=== PATIENT | female | born 1985 | race Two or more races ===

== ENCOUNTER 2024-05-17 13:04 | Outpatient (RCR) | payer MEDICAID, SELFPAY ==
--- NOTE | 2024-05-17 15:14 | CTCCONSULT_ITS ---
[facility] [address] [place], [place] [address] Consultation Note Date: 05/17/2024 MR#: [id number] Name: SYED FERNANDEZ : 1985 Dx: C73 Malignant neoplasm of thyroid gland Attending physician. ALLISON Ojeda Referring physician. Kory Yu MD Reason for consultation. 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 History of Present Illness: Patient is a 37-year-old lady, followed for neck fax felt in the thyroid area with ultrasound showing heterogeneous right thyroid lobe with at least 2 solid isoechoic and hyperechoic nodules largest being 2.8 cm in the upper pole. 09/17/2023 patient had right thyroidectomy performed by Dr. Downing. 2 x 2 x 0.9 cm papillary carcinoma margins uninvolved angioinvasion present lymphatic invasion present extrathyroidal extension not identified no lymph nodes submitted. pT1b Nx. Left thyroid lobectomy 10/11/2023 revealing 2 small foci of papillary carcinoma each less than 1 mm. The stage of pT1b pNX status remained the same. Patient reportedly is on 100 mcg of levothyroxine. Patient referred for radioactive iodine therapy. Past Medical History: Recent discovery of thyroid cancer denies other medical conditions Meds. Levothyroxine 100 mcg a day. Family history. Denies cancer history in family Social History: 2 pregnancies 1 age of first 22 Review of Systems: Has experienced anxiety cold heat intolerance Physical Exam: General: Well-appearing lady no acute distress HEENT: Well-healed scar low neck lymph nodes not felt chest clear to auscultation CV: heart regular rate and rhythm clear to auscultation ABD: Soft no organomegaly or tenderness EXT: No cyanosis clubbing or edema. Assessment: 1. Patient with pT1bNx right thyroid papillary carcinoma status post right thyroid lobectomy 09/17/2023, and left thyroidectomy 10/11/2023 revealing 2 small foci less than 1 mm of papillary carcinoma. 2. The moderate size (2 cm) and angioinvasion puts patient at intermediate risk of recurrence following surgery. 3. There is a trend toward reducing the radioiodine dosage and in some cases eliminated altogether for favorable low risk types. I believe that a moderate dose of 30 mCi should be adequate to control her cancer postop, along with thyroid hormone replacement and TSH control. Discussed with patient and mother present regarding radiation safety instructions which will be reviewed following her being prepped for the procedure. 4. Told patient to take half strength or 50 mcg of Synthroid for the next 4 weeks followed by being off completely for the following 2 weeks. TSH and test will be checked prior to administration of the procedure. 5. Thank you very much for allowing me to evaluate and manage this patient. Cc: Kory Yu MD, CVCC MD Jenifer Mauricio [employer] DEVELOPER Electronically signed by: Alex Romero MD, DABR 05/17/2024 3:11 PM
== END 2024-06-09 23:59 | disposition home or self-care (01) ==
LOC: SCTC 13:04
PROVIDERS: PCP Nurse Practitioner Family; Referring Provider Internal Medicine Hematology & Oncology; Visit Provider Radiology Therapeutic Radiology
DX: C73 Malignant neoplasm of thyroid gland (principal); E89.0 Postprocedural hypothyroidism; Z79.890 Hormone replacement therapy
CPT/HCPCS: 99213; G0463

== ENCOUNTER 2024-06-28 14:08 | Outpatient (RCR) | payer MEDICAID, SELFPAY ==
--- NOTE | 2024-06-28 15:04 | CTCFLWUP_ITS ---
[facility] [address] [place], [place] [address] FOLLOW-UP NOTE Date: 06/28/2024 MR#: [id number] Name: SYED FERNANDEZ : 1985 Dx: C73 Malignant neoplasm of thyroid gland Identification. Patient with pT1bNX right thyroid papillary carcinoma status post right thyroid lobectomy 09/17/2023 and left thyroidectomy 10/11/2023 revealing 2 small foci less than 1 mm of papillary carcinoma. The right thyroid carcinoma measured 2 x 2 x 0.9 cm with angioinvasion and lymphatic invasion present. Patient is felt to be intermediate risk and 30 mCi of radioactive iodine was discussed with the patient. Was told to take half strength Synthroid followed by no thyroid supplements for the past 2 weeks. Patient did appear to have followed the instructions but did not yet get labs drawn. Labs for TSH and practice was given to patient and we will be calling her later. Radiation safety instructions were given for when we will be doing this procedure.. Electronically signed by: Alex Romero M.D. 06/28/2024 3:01 PM
== END 2024-07-10 23:59 | disposition home or self-care (01) ==
LOC: SCTC 14:08
PROVIDERS: PCP Nurse Practitioner Family; Referring Provider Nurse Practitioner Family; Visit Provider Radiology Therapeutic Radiology
DX: C73 Malignant neoplasm of thyroid gland (principal); E89.0 Postprocedural hypothyroidism
CPT/HCPCS: 99213; G0463

== ENCOUNTER 2024-08-24 13:21 | Outpatient (RCR) | payer MEDICAID, SELFPAY ==
--- NOTE | 2024-08-24 14:34 | CTCFLWUP_ITS ---
[facility] [address] [place], [place] [address] FOLLOW-UP NOTE Date: 08/24/2024 MR#: [id number] Name: SYED FERNANDEZ : 1985 Dx: C73 Malignant neoplasm of thyroid gland Patient with pT1b NX right thyroid papillary carcinoma status post right thyroidectomy 09/17/2023 and left thyroidectomy 10/11/2023 revealing 2 small foci less than 1 mm papillary carcinoma. Right thyroid carcinoma measured 2 x 2 x 0.9 cm with angioinvasion and lymphatic invasion present. Patient received 31 mCi of I-131 and week later total body iodine scan showed no findings of met disease. Patient followed radiation therapy precautions. Patient is now seeing Dr. Yu who adjusting her thyroid medications as well as doing lab tests and occasional imaging studies to be scheduled. Told patient that as she is stage I with no sign of distant mets and with adequate treatment and follow-up with Dr. Yu she could be seeing us only on a as needed basis. Electronically signed by: Alex Romero M.D. 08/24/2024 2:32 PM
== END 2024-09-09 23:59 | disposition home or self-care (01) ==
LOC: SCTC 13:21
PROVIDERS: PCP Nurse Practitioner Family; Referring Provider Nurse Practitioner Family; Visit Provider Radiology Therapeutic Radiology
DX: C73 Malignant neoplasm of thyroid gland (principal); E89.0 Postprocedural hypothyroidism
CPT/HCPCS: 99213; G0463

== ENCOUNTER 2025-01-18 09:15 | Outpatient (RCR) | payer MEDICAID, SELFPAY ==
[2025-01-15 10:51] LABS: HCG Qualitative,Urine Negative
--- NOTE | 2025-01-17 09:00 | XR_ITS ---
EXAMINATION: Nuclear medicine thyroid scan Date and time: January,, 1555 hours INDICATIONS: Diagnosis malignant neoplasm thyroid, thyroidectomy 2023, lack of energy COMPARISON: July 18, 2024 TECHNIQUE AND FINDINGS: Oral administration 279 uCi I-123 06-hour and 24-hour uptake No thyroid activity IMPRESSION: No thyroid activity
== END 2025-01-23 23:59 | disposition home or self-care (01) ==
LOC: SNUC 09:15
PROVIDERS: PCP Nurse Practitioner Family; Referring Provider Internal Medicine Hematology & Oncology; Visit Provider Internal Medicine Hematology & Oncology
DX: C73 Malignant neoplasm of thyroid gland (principal)
CPT/HCPCS: 78013; 81025; A9516